=== PATIENT | female | born 1955 | race Caucasian/White ===

== ENCOUNTER 2019-02-26 04:48 | Emergency (ER) | payer SELFPAY ==
--- OUTSIDE RECORDS SUMMARY | 2019-02-26 04:50 | XMS REPORT ---
:1955 [facility] [address] [place] [address] Dr. Lnig [address] [place] [id number] Care Team Providers Name Role Phone Unavailable Unavailable Unavailable Problems This patient has no known problems. Allergies, Adverse Reactions, Alerts This patient has no known allergies or adverse reactions. Medications This patient has no known medications.
[2019-02-26 05:58] LABS: Absolute Lymphocytes (CBC) 0.6 K/uL (0.7-4.9); Basophils % 0.3 % (0-1.3); Eosinophils % 1.2 % (0-4.4); Hematocrit 38.6 % (36.0-45.0); Lymphocytes % 5.7 % (15.3-44.8); Monocytes % 3.5 % (3.3-12.3)
[2019-02-26 06:09] LABS: Potassium 4.2 mmol/L (3.5-5.1)
[2019-02-26] MEDS ORDERED: NA CHLORIDE 0.9% 1,000 ML ONE (06:09)
[2019-02-26 06:24] LABS: Blood Morphology Comment NOT SEEN (NOT SEEN); Platelet Estimate ADEQ; Urine White Blood Cell Casts OK
[2019-02-26] MEDS ORDERED: ONDANSETRON 4 MG/2 ML VIAL ONE ×2 (06:42→08:41)
[2019-02-26] MEDS ORDERED: FAMOTIDINE 20 MG/2 ML VIAL IV ONE (06:42)
[2019-02-26] MEDS ORDERED: KETOROLAC 30 MG/ML INJ ONE (06:42)
--- NOTE | 2019-02-26 07:51 | RAD REPORT ---
EXAM DESCRIPTION: CT - Abdomen Pelvis W Contrast - 02/26/2019 7:39 am CLINICAL HISTORY: Abdominal pain, vomiting, diarrhea COMPARISON: None. TECHNIQUE: Biphasic, helical CT imaging of the abdomen and pelvis was performed following 100 ml non -ionic IV contrast. Oral contrast was given. All CT scans are performed using dose optimization technique as appropriate and may include automated exposure control or mA/KV adjustment according to patient size. FINDINGS: No suspicious findings in the lung bases. The liver, spleen, and pancreas show no suspicious findings. Gallbladder and biliary tree are also wi thout suspicious finding. Liver shows a mild fatty infiltration pattern. Two small right lobe liver c ysts are present. Symmetric renal function is seen with no hydronephrosis or suspicious renal mass. No pyelonephritis o r acute parenchymal process. No bladder abnormalities. No adrenal abnormalities. Uterus and ovaries s how no suspicious findings. No dilated bowel loops or bowel wall thickening. There are several prominent loops of jejunum. The ap pendix is normal. No active colon process seen. No free air, free fluid or inflammatory stranding. N o mass or bulky lymphadenopathy. A very small umbilical hernia is present. Lower lumbar disc and bony degenerative changes are present. No acute finding seen. IMPRESSION: Nonspecific small bowel enteritis pattern. No obstruction, free air or surgically emergent finding. Mild fatty infiltration of the liver.
--- NOTE | 2019-02-26 08:11 | ER ---
Nurse's Notes [facility] Name: Jessica Rasmussen Age: 63 yrs Sex: Female : 1955 Arrival Date: 02/26/2019 Time: 04:50 Bed 16 Private MD: Diagnosis: Nausea and vomiting;Diarrhea, unspecified;Cramp and spasm-legs Presentation: 02/26 04:51 Presenting complaint: EMS states: pt with bilateral lower leg cramps. pt with hx leg ak1 cramps. pt with N/V/D X2 days [employer]. Transition of care: patient was not received from another setting of care. Onset of symptoms was February 26, 2019. Risk Assessment: Do you want to hurt yourself or someone else? Patient reports no desire to harm self or others. Initial Sepsis Screen: Does the patient meet any 2 criteria? No. Patient's initial sepsis screen is negative. Does the patient have a suspected source of infection? No. Patient's initial sepsis screen is negative. Care prior to arrival: Medication(s) given: Normal saline infusion, 500 mL, zofran 4 mg, IV initiated. 20 GA, in the left antecubital area. 04:51 Acuity: FANY 3 ak1 04:51 Method Of Arrival: EMS: [facility] ak1 04:55 Note EMS [facility] 139. ak1 Triage Assessment: 04:53 General: Appears in no apparent distress. Behavior is calm, cooperative. Pain: ak1 Complains of pain in right leg and left leg. Historical: - Allergies: 04:53 Gluten Protein; trigers AFIB per pt; ak1 - Home Meds: 04:53 None [Active]; ak1 - PMHx: 04:53 gluten intolerance; ak1 - PSHx: 04:53 Tubal ligation; ak1 - Immunization history:: Adult Immunizations unknown. - Social history:: Smoking status: Patient/guardian denies using tobacco. - Ebola Screening: : No symptoms or risks identified at this time. Screenin:53 Abuse screen: Denies threats or abuse. Denies injuries from another. Nutritional ak1 screening: No deficits noted. Tuberculosis screening: No symptoms or risk factors identified. Fall Risk Gait- Weak (10 pts.). Assessment: 05:31 General: Appears uncomfortable, Behavior is calm, cooperative, appropriate for age. ea Pain: Complains of pain in abdomen and left leg and right leg. Neuro: Level of Consciousness is awake, alert, obeys commands, Oriented to person, place, time, situation. Cardiovascular: Patient's skin is warm and dry. Respiratory: Airway is patent Respiratory effort is even, unlabored, Respiratory pattern is regular, symmetrical. Derm: Skin is pink, warm \T\ dry. Musculoskeletal: Circulation, motion, and sensation intact. 06:41 Reassessment: Patient and/or family updated on plan of care and expected duration. Pain ea level reassessed. Patient is alert, oriented x 3, equal unlabored respirations, skin warm/dry/pink. PO challenge complete, pt tolerated ice chips and water well. 07:22 Reassessment: Patient and/or family updated on plan of care and expected duration. Pain ls4 level reassessed. Patient is alert, oriented x 3, equal unlabored respirations, skin warm/dry/pink. 08:31 Reassessment: pt c/o nauseousness at this time, medicated as ordered. will monitor tw2 PRIOR to discharge for improvement in pts condition. Patient states symptoms have not improved. 09:33 Reassessment: Patient appears in no apparent distress at this time. Patient and/or ls4 family updated on plan of care and expected duration. Pain level reassessed. Patient is alert, oriented x 3, equal unlabored respirations, skin warm/dry/pink. feels better and would like to go home at this time. Vital Signs: 04:53 BP 156 / 60; Pulse 89; Resp 18; Temp 98.1; Pulse Ox 99% on R/A; Weight 86.18 kg (R); ak1 Height 5 ft. 7 in. (170.18 cm) (R); Pain 0/10; 05:00 BP 141 / 53; Pulse 89; Resp 18; Pulse Ox 98% on R/A; ea 06:54 BP 136 / 56; Pulse 73; Resp 18; Pulse Ox 93% on R/A; ea 08:33 BP 130 / 55; Pulse 72; Resp 16; Pulse Ox 99% on R/A; ls4 04:53 Body Mass Index 29.76 (86.18 kg, 170.18 cm) ak1 ED Course: 04:50 Patient arrived in ED. ak1 04:52 Triage completed. ak1 04:53 Arm band placed on Patient placed in an exam room, on a stretcher, on pulse oximetry, ak1 Patient notified of wait time. 04:53 Patient has correct armband on for positive identification. Bed in low position. Call ak1 light in reach. Side rails up X2. Pulse ox on. NIBP on. 04:53 Maintain EMS IV. Dressing intact. Site clean \T\ dry. Gauge \T\ site: 20g Left AC. ak 1 05:31 Tanisha Meadows, RN is Primary Nurse. ea 06:11 Tobias Hooper PA is PHCP. cp 06:11 Heber Jules MD is Attending Physician. cp 06:57 Report given to Avis MELO. ea 06:59 Avis Pascal RN is Primary Nurse. ls4 07:38 CT completed. Patient tolerated procedure well. Patient moved to CT via wheelchair. jg6 Patient moved back from CT. 07:41 CT Abd/Pelvis - IV Contrast Only In Process Unspecified. EDMS 09:34 No provider procedures requiring assistance completed. IV discontinued, intact, ls4 bleeding controlled, No redness/swelling at site. Pressure dressing applied. Administered Medications: 06:01 Drug: NS 0.9% 1000 ml Route: IV; Rate: 1 bolus; Site: left antecubital; ea 07:02 Follow up: IV Status: Completed infusion; IV Intake: 1000ml ls4 06:30 Drug: Zofran 4 mg Route: IVP; Site: left antecubital; ea 06:50 Follow up: Response: No adverse reaction; Marked relief of symptoms ea 06:32 Drug: TORadol 30 mg Route: IVP; Site: left antecubital; ea 06:50 Follow up: Response: No adverse reaction; Marked relief of symptoms ea 06:33 Drug: Pepcid 20 mg Route: IVP; Site: left antecubital; ea 06:50 Follow up: Response: No adverse reaction; Marked relief of symptoms ea 08:22 Drug: Flexeril 10 mg Route: PO; tw2 09:00 Follow up: Response: No adverse reaction; Marked relief of symptoms ls4 08:28 Drug: Zofran 4 mg Route: IVP; Site: left antecubital; tw2 09:00 Follow up: Response: No adverse reaction; Marked relief of symptoms ls4 Intake: 07:02 IV: 1000ml; Total: 1000ml. ls4 Outcome: 08:09 Discharge ordered by . cp 09:34 Discharged to home ambulatory, with family. ls4 09:34 Condition: stable 09:34 Discharge instructions given to patient, family, Instructed on discharge instructions, follow up and referral plans. medication usage, safety practices, Demonstrated understanding of instructions, follow-up care, medications, Prescriptions given X 2. 09:38 Patient left the ED. ls4 Signatures: Dispatcher [employer] EDMS Christina Jesus, RN RN ak1 Tobias Hooper, DAVID PA Alexandra Zamarripa, RN RN tw2 Tanisha Meadows RN RN Rowan Carrasco Avis Pascal, RN RN ls4
--- NOTE | 2019-02-26 08:12 | EDPHYS ---
Physician Documentation [facility] Name: Jessica Rasmussen Age: 63 yrs Sex: Female : 1955 Arrival Date: 02/26/2019 Time: 04:50 Bed 16 Private MD: ED Physician Heber Jules HPI: 02/26 06:15 This 63 yrs old Female presents to ER via EMS with complaints of nausea and cp vomiting and diarrhea. 06:15 The patient presents to the emergency department with nausea, with "dry heaves", cp vomiting, that is continuous, diarrhea, that is continuous. 06:15 Onset: The symptoms/episode began/occurred suddenly, this morning. Possible causes: cp unknown. 06:15 Associated signs and symptoms: Pertinent negatives: constipation, dysuria, fever, GI cp bleeding. Severity of symptoms: in the emergency department the symptoms are unchanged despite home interventions. Historical: - Allergies: 04:53 Gluten Protein; trigers AFIB per pt; ak1 - Home Meds: 04:53 None [Active]; ak1 - PMHx: 04:53 gluten intolerance; ak1 - PSHx: 04:53 Tubal ligation; ak1 - Immunization history:: Adult Immunizations unknown. - Social history:: Smoking status: Patient/guardian denies using tobacco. - Ebola Screening: : No symptoms or risks identified at this time. ROS: 06:30 Constitutional: Negative for body aches, chills, fever, poor PO intake. cp 06:30 Eyes: Negative for injury, pain, redness, and discharge. cp 06:30 ENT: Negative for drainage from ear(s), ear pain, sore throat, difficulty swallowing, difficulty handling secretions. 06:30 Cardiovascular: Negative for chest pain. 06:30 Respiratory: Negative for cough, shortness of breath, wheezing. 06:30 Abdomen/GI: Positive for abdominal pain, nausea, vomiting, and diarrhea, Negative for constipation, hematemesis, black/tarry stool, rectal bleeding. 06:30 Back: Negative for pain at rest, pain with movement. 06:30 MS/extremity: Positive for pain, of the right leg and left leg, cramps, restlessness, Negative for paresthesias, swelling. 06:30 Skin: Negative for rash. 06:30 Neuro: Negative for altered mental status, dizziness, headache, numbness, weakness. 06:30 All other systems are negative. Exam: 06:35 Constitutional: The patient appears in no acute distress, alert, awake, cp non-diaphoretic, non-toxic, well developed, well nourished. 06:35 Head/Face: Normocephalic, atraumatic. cp 06:35 Eyes: Periorbital structures: appear normal, Conjunctiva: normal, no exudate, no injection, Sclera: no appreciated abnormality, Lids and lashes: appear normal, bilaterally. 06:35 ENT: External ear(s): are unremarkable, Nose: is normal, Mouth: Lips: dry, Oral mucosa: moist, Posterior pharynx: is normal, airway is patent, no erythema, no exudate. 06:35 Neck: ROM/movement: is normal, is supple, without pain, no range of motions limitations, no meningismus, no nuchal rigidity. 06:35 Chest/axilla: Inspection: normal, Palpation: is normal, no crepitus, no tenderness. 06:35 Cardiovascular: Rate: normal, Rhythm: regular, Edema: is not appreciated, JVD: is not appreciated. 06:35 Respiratory: the patient does not display signs of respiratory distress, Respirations: normal, no use of accessory muscles, no retractions, no splinting, no tachypnea, labored breathing, is not present, Breath sounds: are clear throughout, no decreased breath sounds, no stridor, no wheezing. 06:35 Abdomen/GI: Inspection: abdomen appears normal, Bowel sounds: active, all quadrants, Palpation: soft, in all quadrants, mild abdominal tenderness, in all quadrants, rebound tenderness, is not appreciated, involuntary guarding, is not appreciated. 06:35 Back: pain, is absent, ROM is normal. 06:35 Musculoskeletal/extremity: Calves: are non-tender, have equal circumference. 06:35 Skin: no rash present. 06:35 Neuro: Orientation: to person, place \\T\\ time. Mentation: is normal, Motor: moves all fours, strength is normal, Sensation: is normal. Vital Signs: 04:53 BP 156 / 60; Pulse 89; Resp 18; Temp 98.1; Pulse Ox 99% on R/A; Weight 86.18 kg (R); ak1 Height 5 ft. 7 in. (170.18 cm) (R); Pain 0/10; 05:00 BP 141 / 53; Pulse 89; Resp 18; Pulse Ox 98% on R/A; ea 06:54 BP 136 / 56; Pulse 73; Resp 18; Pulse Ox 93% on R/A; ea 08:33 BP 130 / 55; Pulse 72; Resp 16; Pulse Ox 99% on R/A; ls4 04:53 Body Mass Index 29.76 (86.18 kg, 170.18 cm) ak1 MDM: 06:13 Patient medically screened. cp 08:07 Data reviewed: vital signs, nurses notes, lab test result(s), radiologic studies, CT cp scan. 08:07 Counseling: I had a detailed discussion with the patient and/or guardian regarding: the cp historical points, exam findings, and any diagnostic results supporting the discharge/admit diagnosis, lab results, radiology results, to return to the emergency department if symptoms worsen or persist or if there are any questions or concerns that arise at home. Response to treatment: the patient's symptoms have markedly improved after treatment. Special discussion: Based on the patient's Hx, exam, and Dx evaluation, there is no indication for emergent surgery or inpatient Tx. It is understood by the patient/guardian that if the Sx's persist or worsen they need to return immediately for re-evaluation. ED course: VSS. Symptoms improved with IV fluids and meds. Vomiting resolved. Will discharge to home for continued monitoring. 02/26 05:36 Order name: CBC with Diff; Complete Time: 06:37 gs 02/26 06:37 Interpretation: Normal except: TOSHA% 89.3; LYM% 5.7; NEUT A 8.7; LYMA 0.6. cp 02/26 05:36 Order name: Basic Metabolic Panel; Complete Time: 06:18 gs 02/26 06:18 Interpretation: Normal except: GLUC 110; GFR 65. cp 02/26 06:20 Order name: Magnesium; Complete Time: 06:37 cp 02/26 06:25 Order name: CBC Smear Scan; Complete Time: 06:37 EDMS 02/26 06:59 Order name: CT Abd/Pelvis - IV Contrast Only; Complete Time: 07:55 cp 02/26 07:55 Interpretation: Report reviewed. cp 02/26 06:37 Order name: PO challenge; Complete Time: 06:41 cp Administered Medications: 06:01 Drug: NS 0.9% 1000 ml Route: IV; Rate: 1 bolus; Site: left antecubital; ea 07:02 Follow up: IV Status: Completed infusion; IV Intake: 1000ml ls4 06:30 Drug: Zofran 4 mg Route: IVP; Site: left antecubital; ea 06:50 Follow up: Response: No adverse reaction; Marked relief of symptoms ea 06:32 Drug: TORadol 30 mg Route: IVP; Site: left antecubital; ea 06:50 Follow up: Response: No adverse reaction; Marked relief of symptoms ea 06:33 Drug: Pepcid 20 mg Route: IVP; Site: left antecubital; ea 06:50 Follow up: Response: No adverse reaction; Marked relief of symptoms ea 08:22 Drug: Flexeril 10 mg Route: PO; tw2 09:00 Follow up: Response: No adverse reaction; Marked relief of symptoms ls4 08:28 Drug: Zofran 4 mg Route: IVP; Site: left antecubital; tw2 09:00 Follow up: Response: No adverse reaction; Marked relief of symptoms ls4 Disposition: 02/27 02:38 Co-signature as Attending Physician, Heber Jules MD. davian Disposition: 02/26/19 08:09 Discharged to Home. Impression: Nausea and vomiting, Diarrhea, unspecified, Cramp and spasm - legs. - Condition is Stable. - Discharge Instructions: Food Choices to Help Relieve Diarrhea, Adult, Dehydration, Adult, Diarrhea, Adult, Muscle Cramps and Spasms, Nausea and Vomiting, Adult. - Prescriptions for Zofran 4 mg Oral Tablet - take 1 tablet by ORAL route every 12 hours As needed; 20 tablet. Lomotil 2.5- 0.025 mg Oral Tablet - take 1 tablet by ORAL route every 6 hours As needed; 20 tablet. - Medication Reconciliation Form, Thank You Letter, Antibiotic Education, Prescription Opioid Use form. - Follow up: Private Physician; When: 1 - 2 days; Reason: Worsening of condition. - Problem is new. - Symptoms have improved. Signatures: Dispatcher [employer] EDMS Christina Jesus RN RN ak1 Tobias Hooper PA PA cp Wise, Tara, RN RN tw2 Tanisha Meadows RN RN ea Starr, Gregory, MD MD gs Stewart Avis, RN RN ls4 Corrections: (The following items were deleted from the chart) 02/26 06:37 06:37 Normal except: TOSHA% 89.3; LYM% 5.7; NEUT A 8.7. cp cp 09:38 08:09 02/26/2019 08:09 Discharged to Home. Impression: Nausea and vomiting; Diarrhea, ls4 unspecified; Cramp and spasm - legs. Condition is Stable. Forms are Medication Reconciliation Form, Thank You Letter, Antibiotic Education, Prescription Opioid Use. Follow up: Private Physician; When: 1 - 2 days; Reason: Worsening of condition. Problem is new. Symptoms have improved. cp
[2019-02-26] MEDS ORDERED: CYCLOBENZAPRINE 10 MG TAB ONE (08:35)
== END 2019-02-26 09:38 | disposition home or self-care (01) ==
LOC: ER 04:48
DX: R19.7 Diarrhea, unspecified (principal); R25.2 Cramp and spasm; Z91.02 Food additives allergy status
CPT/HCPCS: 36415; 74177; 80048; 83735; 85025; 96361; 96374; 96375; 99284; J2405; J7030; Q9967